=== PATIENT | male | born 1965 | race Two or more races ===

== ENCOUNTER 2024-07-10 22:07 | Emergency (ER) | payer SELFPAY ==
[2024-07-10 22:08] VITALS: BP 107/70; PULSE 118; RESP 18; TEMP 37.4; O2SAT 97
[2024-07-10 22:14] VITALS: BMI 28.3
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
== END 2024-07-10 22:50 ==
PROVIDERS: Emergency Provider Emergency Medicine
DX: Z02.89 Encounter for other administrative examinations (principal); S00.81XA Abrasion of other part of head, initial encounter; V89.2XXA Person injured in unspecified motor-vehicle accident, traffic, initial encounter
CPT/HCPCS: 99281